=== PATIENT | male | born 1945 | race Caucasian/White ===

== ENCOUNTER 2018-01-07 20:04 | Emergency (ER) | payer OTHER, BC ==
[~2018-01-07] VITALS: Ht 170.2 cm; Wt 86.6 kg
[~2018-01-07 20:04] MED LIST: ASCORBIC ACID500 M3 PO; CELEBREX200 MG PO; COUMADIN1 MG PO; DEXILANT60 MG PO; FERROUS SULFAT325 MG PO; GLUCOSAMINE1000 MG PO; HYDROCHLOROTH12.5 M3 PO; HYDROCODON-ACE1 EAC7 PO; LOTRISONE15 GM TP; MOTRIN600 MG PO; RANITIDINE HCL150 MG PO; SINGULAIR10 MG PO; TYLENOL EXTRA500 MG PO
[2018-01-07] MEDS ORDERED: KEFLEX500 MG PO (22:59)
[2018-01-07 23:16] VITALS: BP 126/58
== END 2018-01-07 23:20 | disposition home or self-care (01) ==
LOC: EME 20:04
PROC: 0JQR0ZZ Repair Left Foot Subcutaneous Tissue and Fascia, Open Approach (ICD-10-PCS; principal; 2018-01-07)
DX: S91.115A Laceration without foreign body of left lesser toe(s) without damage to nail, initial encounter (principal); S92.532A Displaced fracture of distal phalanx of left lesser toe(s), initial encounter for closed fracture; W20.8XXA Other cause of strike by thrown, projected or falling object, initial encounter; Y93.H9 Activity, other involving exterior property and land maintenance, building and construction
CPT/HCPCS: 73630; 99281; 99284; S0020